=== PATIENT | female | born 1970 | race Caucasian/White ===

== ENCOUNTER 2016-10-30 14:31 | Outpatient (CLI) ==
[2016-07-15 22:08] VITALS: BMI 38.9
[2016-10-30 17:26] LABS: BASOPHILS # (AUTO) 0.1 K/uL (0-0.2); BASOPHILS % (AUTO) 0.7 % (0.0-3.0); EOSINOPHILS # (AUTO) 0.2 K/ul (0.0-0.7); EOSINOPHILS % (AUTO) 2.1 % (0.0-7.0); HEMATOCRIT 41.7 % (37.0-47.0); HEMOGLOBIN 13.8 g/dl (12.0-16.0); IMMATURE GRANULOCYTE % (AUTO) 0.5 % (0.0-5.0); LYMPHOCYTES # (AUTO) 3.1 K/uL (0.60-3.4); LYMPHOCYTES % (AUTO) 32.2 (10.0-50.0); MEAN CORPUSCULAR HEMOGLOBIN 30.4 pg (27.0-31.0); MEAN CORPUSCULAR HGB CONC 33.1 (31.8-35.4); MEAN CORPUSCULAR VOLUME 91.9 fl (81.0-99.0); MONOCYTES # (AUTO) 0.6 K/uL (0.4-2.0); MONOCYTES % (AUTO) 6.3 (0-10); NEUTROPHILS # (AUTO) 5.6 K/ul (2.0-6.9); NEUTROPHILS % (AUTO) 58.2; PLATELET COUNT 291 10^3/uL (140-440); RED BLOOD COUNT 4.54 10^6/ul (4.20-5.40); WHITE BLOOD COUNT 9.59 K/ul (4.6-10.2)
[2016-10-30 17:40] LABS: ALBUMIN 3.7 g/dL (3.4-5.0); ALBUMIN/GLOBULIN RATIO 1.23; ANION GAP 13.5; BILIRUBIN,TOTAL 0.15 mg/dL (0.00-1.20); BUN/CREATININE RATIO 14.6; CALCIUM 8.8 mg/dL (8.2-10.2); CHOL/HDL RATIO 2.8 (4.5-5.5); CREATININE 0.89 mg/dL (0.60-1.30); POTASSIUM 3.5 mmol/L (3.5-5.10); TOTAL PROTEIN 6.7 g/dL (6.4-8.2)
== END 2016-10-30 14:32 | disposition home or self-care (01) ==
LOC: LAB 14:31
PROVIDERS: ATTEND Nurse Practitioner Family
DX: E78.1 Pure hyperglyceridemia (principal)
CPT/HCPCS: 36415; 80053; 80061; 85025

== ENCOUNTER 2016-11-16 11:37 | Outpatient (CLI) ==
[2016-07-15 22:08] VITALS: BMI 38.9
[2016-11-16 13:57] LABS: FLU INTERNAL QC INTERNAL QC VALID; RAPID FLU A NEGATIVE (NEGATIVE); RAPID FLU B NEGATIVE (NEGATIVE)
== END 2016-11-16 11:38 | disposition home or self-care (01) ==
LOC: LAB 11:37
PROVIDERS: ATTEND Nurse Practitioner Family
DX: J02.9 Acute pharyngitis, unspecified (principal)
CPT/HCPCS: 87651; 87804; 87880

== ENCOUNTER 2016-12-07 20:07 | Emergency (ER) ==
[2016-12-07 20:14] VITALS: BP 135/85; TEMP 99.1; BMI 38.0
--- NOTE | 2016-12-07 20:20 | ED.PDOC ---
General ED Provider: Dr. SHAYNE LOPEZ-ER Chief Complaint: Cough Stated Complaint: my sinuses are draining and i am coughing Time Seen by Physician: 20:18 Mode of Arrival: Walk-In Information Source: Patient Exam Limitations: No limitations Primary Care [facility] Nursing and Triage Documentation Reviewed and Agree: Yes Respiratory Complaint Exam - Respiratory Complaint/Exam Onset/Duration: 3 dasy Symptoms Are: Still present Timing: Intermittent Initial Severity: Mild Current Severity: Mild Location: Nose, Chest Character: Reports: Non-productive cough Aggravating: Reports: URI Alleviating: Reports: Bronchodilators Associated Signs and Symptoms: Reports: Wheezing, URI, Nasal congestion, Sinus discomfort, Sore throat. Denies: Rapid breathing, Dyspnea, Fever, Chills, Chest pain, Pleuritic chest pain, Hemoptysis, Dizziness, Calf pain, Calf swelling, Edema, Hoarseness, Vomiting, Weight loss, Decreased oral intake, Increased thirst, Increased appetite, Increased urination History of Healthcare-Acquired Pneumonia: No Related Surgical History: Reports: None Pulmonary Embolism Risk Factors: None Cardiac Risk Factors: Reports: Smoking Pseudomonas Risk Factors: Reports: Chronic Lung Disease Status Asthmaticus Risk Factors: Reports: None Home Oxygen Use: No Recent Stress Test: No Recent Echo/LV Function: No Current Antibiotic Use: No Current Asthma Medication Use: No Respiratory Distress: None Inadequate Respiratory Effort: No Dysphagia Present: No Stridor Present: No JVD Present: No Accessory Muscle Use: No Diminished Breath Sounds: No Sinus Tenderness: Maxillary Grunting Respirations: No Kussmaul Respirations: No Differential Diagnoses: Bronchitis, Sinusitis, URI Review of Systems - Review Of Systems Constitutional: Reports: No symptoms Eyes: Reports: No symptoms Ears, Nose, Mouth, Throat: Reports: Nose discharge Respiratory: Reports: Cough, Wheezing Cardiac: Reports: No symptoms GI: Reports: No symptoms : Reports: No symptoms Musculoskeletal: Reports: No symptoms Skin: Reports: No symptoms Neurological: Reports: No symptoms Endocrine: Reports: No symptoms Hematologic/Lymphatic: Reports: No symptoms All Other Systems: Reviewed and Negative Past Medical History - Past Medical History Previously Healthy: Yes Endocrine: Reports: None Cardiovascular: Reports: None Respiratory: Reports: None Hematological: Reports: None Gastrointestinal: Reports: None Genitourinary: Reports: None Neuro/Psych: Reports: None Musculoskeletal: Reports: None Cancer: Reports: None Last Menstrual Period: 12/07/16 - Surgical History General Surgical History: Reports: None - Family History Family History: Reports: None - Social History Smoking Status: Current every day smoker, Heavy tobacco smoker Hx Substance Use: Yes (17 YEARS AGO METH CLEAN NOW) Alcohol Screening: Occasionally - Immunizations Tetanus Shot up to Date: No Physical Exam - Physical Exam Appearance: Well-appearing, No pain distress, Well-nourished Eyes: MODESTO, EOMI, Conjunctiva clear ENT: Ears normal, Nose normal, Oropharynx normal Neck: Supple Respiratory: Wheezes Cardiovascular: RRR, Pulses normal, No rub, No murmur GI/: Soft, Nontender, No masses, Bowel sounds normal, No Organomegaly Musculoskeletal: Normal strength, ROM intact, No edema, No calf tenderness Skin: Warm Neurological: Sensation intact, Motor intact, Reflexes intact, Cranial nerves intact, Alert, Oriented Psychiatric: Affect appropriate, Mood appropriate Critical Care Note - Critical Care Note Total Time (mins): 0 Course - Course Vital Signs: Temp Pulse Resp BP Pulse Ox 12/07/16 20:10 99.1 F 94 H 22 135/85 97 Departure - Departure Time of Disposition: 20:20 Disposition: HOME SELF-CARE Discharge Problem: COPD exacerbation Sinusitis Qualifiers: Sinusitis location: unspecified location Chronicity: acute Recurrence: non- recurrent Qualifier Code: (J01.90) Acute sinusitis, unspecified Instructions: COPD (Chronic Obstructive Pulmonary Disease) (ED) Condition: Good Pt referred to PMD for follow-up: Yes Additional Instructions: biaxin 500mg bid x 10 days--prednisone 30mg x2 days then 20mg x2 days then 10mg x 2 days albuterol inhaler 2 puffs qid --tessalon perles 200mg tid prn cough 30- -stop smoking--recfheck in 72hrs if not better --consider cxr if not improving Allergies/Adverse Reactions: Allergies egg Allergy (Severe, Unverified 12/07/16 20:15) stomach ache, rash miconazole nitrate [From Monistat 3] Allergy (Severe, Unverified 12/07/16 20:15) Swelling skin cleanser comb no.17 [From Monistat 3] Allergy (Severe, Unverified 12/07/16 20:15) Swelling aspirin Adverse Reaction (Verified 12/07/16 20:15) SEVERE VOMITING/TROUBLE BREATHING cephalexin monohydrate [From Keflex] Adverse Reaction (Verified 12/07/16 20:15) cinnamon [Cinnamon] Adverse Reaction (Verified 12/07/16 20:15) codeine Adverse Reaction (Verified 12/07/16 20:15) Iodinated Contrast Media - Oral and [Iodinated Contrast Media - IV Dye] Adverse Reaction (Verified 12/07/16 20:15) latex Adverse Reaction (Verified 12/07/16 20:15) meperidine HCl [From Demerol] Adverse Reaction (Verified 12/07/16 20:15) morphine Adverse Reaction (Verified 12/07/16 20:15) QUIT BREATHING Penicillins Adverse Reaction (Verified 12/07/16 20:15) shellfish derived Adverse Reaction (Verified 12/07/16 20:15) Sulfa (Sulfonamide Antibiotics) Adverse Reaction (Verified 12/07/16 20:15) buttermilk ranch dressing Adverse Reaction (Uncoded 12/07/16 20:15) Home Medications: Ambulatory Orders Furosemide [Lasix Tab] 40 mg PO DAILY 09/12/13 Gabapentin 100 mg PO DIRECTED 07/09/15 Metoprolol Succinate 25 mg PO DAILY 07/09/15 Budesonide/Formoterol Fumarate [Symbicort 80-4.5 Mcg Inhaler] 2 puff IH BID 12/27 Nortriptyline HCl 50 mg PO BEDTIME 10/31/15 Topiramate [Topamax] 100 mg PO DAILY 10/31/15 Topiramate [Topamax] 200 mg PO BEDTIME 10/31/15 Albuterol Sulfate 0.083% Neb [Albuterol 0.083% Neb] 1 vial NEB Q4-6H PRN Azithromycin [Zithromax] 250 mg PO DIRECTED #6 tablet 07/15/16 Benzonatate [Tessalon Perles] 100 mg PO TID PRN #25 capsule 07/15/16 Methylprednisolone [Medrol Dosepak] 4 mg PO DIRECTED #1 pkg 07/15/16 Acetaminophen/Chlorpheniramine [Coricidin Hbp Cold & Flu Tab] 1 each PO PRN 10/30 Escitalopram Oxalate [Lexapro] 20 mg PO DAILY 10/15/16 Lorazepam [Ativan] 0.5 mg PO PRN 10/15/16 Disposition Discussed With: Patient
== END 2016-12-07 20:30 | disposition home or self-care (01) ==
LOC: ED 20:07
DX: J44.1 Chronic obstructive pulmonary disease with (acute) exacerbation (principal); J01.90 Acute sinusitis, unspecified; F17.210 Nicotine dependence, cigarettes, uncomplicated; Z79.899 Other long term (current) drug therapy
CPT/HCPCS: 99282

== ENCOUNTER 2017-01-06 13:37 | Outpatient (CLI) ==
--- NOTE | 2017-01-06 14:36 | CT ---
EXAM: CT of the head without contrast History: Primary hypertension. Comparison: Head CT 09/12/2013 Technique: Multiplanar CT images through the head were obtained without the administration of IV co ntrast Findings: The visualized paranasal sinuses are clear in general. Small right mastoid effusion. No acute calvarial abnormalities. Intracranially the ventricular and cisternal spaces are normal in size, shape and configuration for a patient of this age. No dominant mass or midline shift. No hydrocephalous. No acute intracrania l hemorrhage or abnormal extraaxial fluid collections. Impression: No acute intracranial process. Small right mastoid effusion.
== END 2017-01-06 13:38 | disposition home or self-care (01) ==
LOC: RAD 13:37
PROVIDERS: ATTEND Nurse Practitioner Family
DX: I10 Essential (primary) hypertension (principal); G44.89 Other headache syndrome

== ENCOUNTER 2017-01-08 01:36 | Emergency (ER) ==
[2017-01-08 01:47] VITALS: BP 133/86; TEMP 97.2; BMI 42.0
--- NOTE | 2017-01-08 02:23 | ED.PDOC ---
General ED Provider: Dr. BALDEMAR NICOLE Chief Complaint: Headache Stated Complaint: Patient is a 46 year old male who comes to the ER with headaches for one week. Has had elevated blood pressure which is better today. Has Apt with entry driver operator next week however headaches got worse tonigth. Has photophobia but no nausea. Time Seen by Physician: 02:20 Mode of Arrival: Walk-In Information Source: Patient Exam Limitations: No limitations Primary Care Provider: HARIS FLORES Seen Within Last 72 Hours for Same Complaint By: Clinic Nursing and Triage Documentation Reviewed and Agree: Yes Neurological Complaint Exam - Headache Complaint/Exam Onset: Gradual Duration: constant Symptoms Are: Still present Timing: Constant Worst Headache Ever: No Initial Severity: Severe Current Severity: Severe Location: Left, Frontal, Temporal Character: Reports: Throbbing, Radiating, Typical headache Aggravating: Reports: Bright lights Alleviating: Reports: None Associated Signs and Symptoms: Denies: Nausea, Vomiting, Sinus pressure, Fever, Neck pain, Neck stiffness, Decreased LOC, Visual changes Related History: Reports: Similar episode Related Surgical History: Reports: None SAH Risk Factors: Reports: None Meningitis Risk Factors: Reports: None SDH Risk Factors: Reports: None Temporal Arteritis Risk Factors: Reports: Female, . Denies: Over 60 years old, Polymyalgia Rheumatica Normal Head CT Within Last 12 Months: Yes (done yesterday ) Fundoscopic Exam: Present: Normal Findings Papilledema Present: No Temporal Artery Tenderness: Present: None Sinus Tenderness: Present: None TMJ Tenderness: Present: None Glascow Coma Scale (see protocol): 15 Meningeal Signs Positive: No ROM Limited In: No Limitiations Focal Weakness: Present: None Focal Sensory Loss: Present: None Gait: Normal Nystagmus Present: No Gag Reflex Present: Yes [id number]: Normal Findings Romberg Test Positive: No Babinski Sign: Negative Right, Negative Left Heel to Toe Normal: No Head Picture: 1 - headache with photophobia Differential Diagnoses: Migraine, Tension Headache, Viral Syndrome Review of Systems - Review Of Systems Constitutional: Reports: No symptoms Eyes: Reports: Photophobia Ears, Nose, Mouth, Throat: Reports: No symptoms Respiratory: Reports: No symptoms Cardiac: Reports: No symptoms GI: Reports: No symptoms : Reports: No symptoms Musculoskeletal: Reports: No symptoms Skin: Reports: No symptoms Neurological: Reports: Anxiety, Headache Endocrine: Reports: No symptoms Hematologic/Lymphatic: Reports: No symptoms All Other Systems: Reviewed and Negative Past Medical History - Past Medical History Previously Healthy: Yes Endocrine: Reports: Hyperthyroid, Dyslipidemia Cardiovascular: Reports: CHF (Post CHF ) Respiratory: Reports: COPD, Asthma Hematological: Reports: None Gastrointestinal: Reports: GERD Genitourinary: Reports: None Neuro/Psych: Reports: Migraine, Seizure, Anxiety, Depression Musculoskeletal: Reports: None Cancer: Reports: None Last Menstrual Period: YESTERDAY - Surgical History General Surgical History: Reports: (x2), Appendectomy, Cholecystectomy , Tonsillectomy, Orthopedic (RT ARM WITH PLATES AND SCREWS) - Family History Family History: Reports: None - Social History Smoking Status: Current every day smoker, Light tobacco smoker Hx Substance Use: Yes (17 YEARS AGO METH CLEAN NOW) Alcohol Screening: Occasionally - Immunizations Tetanus Shot up to Date: Yes Physical Exam - Physical Exam Appearance: Ill-appearing, Obese Pain Distress: Severe Respiratory: Airway patent, Breath sounds clear, Breath sounds equal, Respirations nonlabored Cardiovascular: RRR, Pulses normal, No rub, No murmur GI/: Soft, Nontender, No masses, Bowel sounds normal, No Organomegaly Musculoskeletal: Normal strength, ROM intact, No edema, No calf tenderness Skin: Warm, Dry, Normal color Neurological: Sensation intact, Motor intact, Reflexes intact, Cranial nerves intact, Alert, Oriented Psychiatric: Anxious Interpretation - Radiology Interpretation Radiology Interpretation By: Radiologist Radiology Results: Negative Exam Interpreted: CT Scan (01/06/2017) Critical Care Note - Critical Care Note Total Time (mins): 0 Course - Course Orders, Labs, Meds: Orders Category Date Time Status Nalbuphine HCl [Nubain] MEDS 01/08/17 02:30 Discontinued 10 mg IM ONCE STA Medications Discontinued Medications Generic Name Dose Route Start Last Admin Trade Name Freq PRN Reason Stop Dose Admin Nalbuphine HCl 10 mg 01/08/17 02:30 01/08/17 02:41 Nubain IM 01/08/17 02:31 10 mg ONCE STA Administration Vital Signs: Temp Pulse Resp BP Pulse Ox 01/08/17 01:37 97.2 F L 87 20 133/86 98 Departure - Departure Time of Disposition: 02:30 Disposition: HOME SELF-CARE Discharge Problem: Headache Classic migraine Qualifiers: Status migrainosus presence: without status migrainosus Intractability: not intractable Qualifier Code: (G43.109) Migraine with aura, not intractable, without status migrainosus Instructions: Migraine Headache (ED) Condition: Stable Pt referred to PMD for follow-up: Yes Additional Instructions: Keep your apt with the entry driver operator. Follow up with the clinic in one to two days Take Fioricet as needed Prescriptions: Butalb/Acetaminophen/Caffeine [Fioricet] 1 each PO Q6H PRN #15 tablet PRN Reason: Migrane headache Allergies/Adverse Reactions: Allergies egg Allergy (Severe, Verified 01/08/17 01:48) stomach ache, rash miconazole nitrate [From Monistat 3] Allergy (Severe, Verified 01/08/17 01:48) Swelling skin cleanser comb no.17 [From Monistat 3] Allergy (Severe, Verified 01/08/17 01 :48) Swelling aspirin Adverse Reaction (Verified 01/08/17 01:48) SEVERE VOMITING/TROUBLE BREATHING cephalexin monohydrate [From Keflex] Adverse Reaction (Verified 01/08/17 01:48) cinnamon [Cinnamon] Adverse Reaction (Verified 01/08/17 01:48) codeine Adverse Reaction (Verified 01/08/17 01:48) Iodinated Contrast Media - Oral and [Iodinated Contrast Media - IV Dye] Adverse Reaction (Verified 01/08/17 01:48) latex Adverse Reaction (Verified 01/08/17 01:48) meperidine HCl [From Demerol] Adverse Reaction (Verified 01/08/17 01:48) morphine Adverse Reaction (Verified 01/08/17 01:48) QUIT BREATHING Penicillins Adverse Reaction (Verified 01/08/17 01:48) shellfish derived Adverse Reaction (Verified 01/08/17 01:48) Sulfa (Sulfonamide Antibiotics) Adverse Reaction (Verified 01/08/17 01:48) sumatriptan [From Imitrex] Adverse Reaction (Verified 01/08/17 02:29) Rash buttermilk ranch dressing Adverse Reaction (Uncoded 01/08/17 01:48) Home Medications: Ambulatory Orders Furosemide [Lasix Tab] 40 mg PO DAILY 09/12/13 Gabapentin 100 mg PO DIRECTED 07/09/15 Metoprolol Succinate 25 mg PO DAILY 07/09/15 Budesonide/Formoterol Fumarate [Symbicort 80-4.5 Mcg Inhaler] 2 puff IH BID 12/27 Topiramate [Topamax] 100 mg PO DAILY 10/31/15 Topiramate [Topamax] 200 mg PO BEDTIME 10/31/15 Albuterol Sulfate 0.083% Neb [Albuterol 0.083% Neb] 1 vial NEB Q4-6H PRN Azithromycin [Zithromax] 250 mg PO DIRECTED #6 tablet 07/15/16 Benzonatate [Tessalon Perles] 100 mg PO TID PRN #25 capsule 07/15/16 Acetaminophen/Chlorpheniramine [Coricidin Hbp Cold & Flu Tab] 1 each PO Q6H PRN 10/15/16 Escitalopram Oxalate [Lexapro] 20 mg PO DAILY 10/15/16 Lorazepam [Ativan] 0.5 mg PO DIRECTED PRN 10/15/16 Epinephrine [Epinephrine 1:10,000 Syringe] 0.1 mg IJ PRN 01/06/17 Albuterol Sulfate [Proair Hfa] 2 puff IH Q4H PRN 01/08/17 Butalb/Acetaminophen/Caffeine [Fioricet] 1 each PO Q6H PRN #15 tablet 01/08/17 Disposition Discussed With: Patient, Family
[2017-01-08] MEDS ORDERED: NUBAIN IM STA (02:30)
== END 2017-01-08 03:23 | disposition home or self-care (01) ==
LOC: ED 01:36
DX: G43.109 Migraine with aura, not intractable, without status migrainosus (principal); F17.210 Nicotine dependence, cigarettes, uncomplicated
CPT/HCPCS: 96372; 99283

== ENCOUNTER 2017-08-09 16:31 | Outpatient (CLI) | END 2017-08-09 16:32 | disposition home or self-care (01) | LOC: LAB 16:31 | PROVIDERS: ATTEND Nurse Practitioner Family | DX: J02.9 Acute pharyngitis, unspecified (principal) | CPT/HCPCS: 87651; 87880 ==

== ENCOUNTER 2017-08-18 08:20 | Outpatient (CLI) ==
--- NOTE | 2017-08-18 10:18 | MAMMO ---
EXAM: Bilateral digital screening mammogram (2-D and 3-D) History: Screening Comparison: Bilateral mammogram 06/19/2016 Findings: MLO and CC views of bilateral breasts demonstrate scattered fibroglandular breast parenchy ma. CAD was reviewed by the radiologist. Tomosynthesis was performed. There are no dominant masses , no suspicious microcalcifications and no architectural distortions. Impression: Stable negative mammogram. Recommend followup routine screening mammography in 1 year. BIRADS 1
== END 2017-08-18 08:21 | disposition home or self-care (01) ==
LOC: RAD 08:20
PROVIDERS: ATTEND Nurse Practitioner Family
DX: Z12.31 Encounter for screening mammogram for malignant neoplasm of breast (principal)
CPT/HCPCS: 77067

== ENCOUNTER 2017-10-20 16:40 | Emergency (ER) ==
[2017-10-20 16:48] VITALS: BP 109/72; TEMP 99.4; BMI 30.9
[2017-10-20] MEDS ORDERED: LIDOCAINE HCL 1% SDV SUBCUT STA (17:46)
[2017-10-20] MEDS ORDERED: ROCEPHIN IM STA (17:46)
--- NOTE | 2017-10-20 18:15 | ED.PDOC ---
General ED Provider: Dr. JASMYN ERNANDEZ Chief Complaint: Nausea/Vomiting Stated Complaint: flu like symptoms Time Seen by Physician: 17:00 (n, v, flu like symptoms sen with nelida) Mode of Arrival: Walk-In Information Source: Patient Exam Limitations: No limitations Primary [facility] Provider: [facility] Nursing and Triage Documentation Reviewed and Agree: Yes Reviewed sepsis parameters & appropriate labs ordered?: Yes System Inflammatory Response Syndrome: Not Applicable Sepsis Protocol: For patient's 13 years and over: Temp is 96.8 and below OR 101 and greater Pulse >90 BPM Resp >20/minute Acutely Altered Mental Status Are patient's symptoms suggestive of a new infection, such as: -Pneumonia -Skin, Soft Tissue -Endocarditis -UTI -Bone, Joint Infection -Implantable Device -Acute Abdominal Infection -Wound Infection -Meningitis -Blood Stream Catheter Infection -Unknown System Inflammatory Response Syndrome: Not Applicable Respiratory Complaint Exam - Respiratory Complaint/Exam Onset/Duration: flu like symptoms started 1 day Symptoms Are: Resolved Timing: Intermittent Initial Severity: Moderate Current Severity: Mild Location: Nose, Throat, Chest Character: Reports: Non-productive cough, Dry cough Aggravating: Reports: URI Associated Signs and Symptoms: Reports: URI, Nasal congestion, Vomiting (x6/ 24 hr ) History of Healthcare-Acquired Pneumonia: No Related Surgical History: Reports: None Pulmonary Embolism Risk Factors: None Cardiac Risk Factors: Reports: None Pseudomonas Risk Factors: Reports: None Tuberculosis Risk Factors: Reports: None Status Asthmaticus Risk Factors: Reports: None Home Oxygen Use: No Recent Stress Test: No Recent Echo/LV Function: No Current Antibiotic Use: No Current Asthma Medication Use: No Respiratory Distress: None Inadequate Respiratory Effort: No Dysphagia Present: No Stridor Present: No JVD Present: No Accessory Muscle Use: No Retractions: Not Present Diminished Breath Sounds: No Sinus Tenderness: None Review of Systems - Review Of Systems Constitutional: Reports: No symptoms Eyes: Reports: No symptoms Ears, Nose, Mouth, Throat: Reports: No symptoms Respiratory: Reports: No symptoms Cardiac: Reports: No symptoms GI: Reports: Nausea, Vomiting : Reports: No symptoms Musculoskeletal: Reports: No symptoms Skin: Reports: No symptoms Neurological: Reports: No symptoms Endocrine: Reports: No symptoms Hematologic/Lymphatic: Reports: No symptoms All Other Systems: Reviewed and Negative Past Medical History - Past Medical History Previously Healthy: Yes Endocrine: Reports: Hyperthyroid, Dyslipidemia Cardiovascular: Reports: CHF (Post CHF ) Respiratory: Reports: COPD, Asthma Hematological: Reports: None Gastrointestinal: Reports: GERD Genitourinary: Reports: None Neuro/Psych: Reports: Migraine, Seizure, Anxiety, Depression Musculoskeletal: Reports: None Cancer: Reports: None Last Menstrual Period: 2 months ago--perimenopausal - Surgical History General Surgical History: Reports: (x2), Appendectomy, Cholecystectomy , Tonsillectomy, Orthopedic (RT ARM WITH PLATES AND SCREWS) - Family History Family History: Reports: None - Social History Smoking Status: Current every day smoker, Light tobacco smoker Hx Substance Use: Yes (17 YEARS AGO METH CLEAN NOW) Alcohol Screening: Occasionally Physical Exam - Physical Exam Appearance: Well-appearing, No pain distress, Well-nourished Eyes: MODESTO, EOMI, Conjunctiva clear ENT: Ears normal, Nose normal, Oropharynx normal Respiratory: Airway patent, Breath sounds clear, Breath sounds equal, Respirations nonlabored Cardiovascular: RRR, Pulses normal, No rub, No murmur GI/: Soft, Nontender, No masses, Bowel sounds normal, No Organomegaly Musculoskeletal: Normal strength, ROM intact, No edema, No calf tenderness Skin: Warm, Dry, Normal color Neurological: Sensation intact, Motor intact, Reflexes intact, Cranial nerves intact, Alert, Oriented Psychiatric: Affect appropriate, Mood appropriate Critical Care Note - Critical Care Note Total Time (mins): 0 Course - Course Orders, Labs, Meds: Lab Review 10/20/17 10/20/17 17:00 17:00 Urine Color Yellow Urine Clarity Cloudy Urine pH 5.5 Ur Specific [place] 1.025 Urine Protein 2+ Urine Glucose (UA) Negative Urine Ketones 1+ Urine Blood 2+ Urine Nitrite Negative Urine Bilirubin 1+ Urine Urobilinogen 0.2 Ur Leukocyte Esterase 3+ Urine Microscopic RBC 5-10 Urine Microscopic WBC Tntc Ur Squamous Epith Cells Not present Amorphous Sediment 2+ Urine Bacteria 1+ Influenza A (Rapid) Negative by naat Influenza B (Rapid) Positive by naat H Orders Category Date Time Status FLU A & B MOLECULAR [FLU A/B MOLECULAR] Stat LAB 10/20/17 17:00 Completed MOLECULAR GROUP A STREP Stat LAB 10/20/17 17:00 Completed URINALYSIS C & S IF INDICATED Stat LAB 10/20/17 17:00 Completed URINE CULTURE Stat LAB 10/20/17 17:00 Completed Ceftriaxone Sodium [Rocephin] MEDS 10/20/17 17:46 Discontinued 1 gm IM ONCE STA Lidocaine HCl/Pf [Lidocaine HCl 1% Sdv] MEDS 10/20/17 17:46 Discontinued 5 ml SUBCUT ONCE STA CT ABD/PEL WO RENAL STONE PROT Stat RADS 10/20/17 17:46 Completed Medications Discontinued Medications Generic Name Dose Route Start Last Admin Trade Name Remedios PRN Reason Stop Dose Admin Ceftriaxone Sodium 1 gm 10/20/17 17:46 10/20/17 18:09 Rocephin IM 10/20/17 17:47 1 gm ONCE STA Administration Lidocaine HCl 5 ml 10/20/17 17:46 10/20/17 18:09 Lidocaine Hcl 1% Sdv SUBCUT 10/20/17 17:47 5 ml ONCE STA Administration Vital Signs: Temp Pulse Resp BP Pulse Ox 10/20/17 16:43 99.4 F 90 20 109/72 96 Departure - Departure Time of Disposition: 19:00 Disposition: HOME SELF-CARE Discharge Problem: Nausea, Vomiting Instructions: Urinary Tract Infection in Women (ED), Influenza (ED), Pneumonia (ED) Condition: Stable Pt referred to PMD for follow-up: Yes IPMP verified?: No Additional Instructions: continue meds as directed--call family md as soon as possible for follow up-- plenty of fluids Allergies/Adverse Reactions: Allergies egg Allergy (Severe, Verified 10/20/17 16:50) stomach ache, rash miconazole nitrate [From Monistat 3] Allergy (Severe, Verified 10/20/17 16:50) Swelling skin cleanser comb no.17 [From Monistat 3] Allergy (Severe, Verified 10/20/17 16 :50) Swelling aspirin Adverse Reaction (Verified 10/20/17 16:50) SEVERE VOMITING/TROUBLE BREATHING cephalexin monohydrate [From Keflex] Adverse Reaction (Verified 10/20/17 16:50) cinnamon [Cinnamon] Adverse Reaction (Verified 10/20/17 16:50) codeine Adverse Reaction (Verified 10/20/17 16:50) Iodinated Contrast- Oral and IV Dye [Iodinated Contrast Media - IV Dye] Adverse Reaction (Verified 10/20/17 16:50) latex Adverse Reaction (Verified 10/20/17 16:50) meperidine HCl [From Demerol] Adverse Reaction (Verified 10/20/17 16:50) morphine Adverse Reaction (Verified 10/20/17 16:50) QUIT BREATHING Penicillins Adverse Reaction (Verified 10/20/17 16:50) shellfish derived Adverse Reaction (Verified 10/20/17 16:50) Sulfa (Sulfonamide Antibiotics) Adverse Reaction (Verified 10/20/17 16:50) sumatriptan [From Imitrex] Adverse Reaction (Verified 10/20/17 16:50) Rash chemicals from bleaching flour and sugar Allergy (Severe, Uncoded 08/03/17 16:32 ) causes stomach trouble and breathing Patient to notify drugstore buttermilk ranch dressing Adverse Reaction (Uncoded 01/08/17 01:48) Home Medications: Ambulatory Orders Furosemide [Lasix Tab] 40 mg PO DAILY 09/12/13 Gabapentin 100 mg PO DIRECTED 07/09/15 Topiramate [Topamax] 100 mg PO DAILY 10/31/15 Topiramate [Topamax] 200 mg PO BEDTIME 10/31/15 Albuterol Sulfate 0.083% Neb [Albuterol 0.083% Neb] 1 vial NEB Q4-6H PRN Benzonatate [Tessalon Perles] 100 mg PO TID PRN #25 capsule 07/15/16 Lorazepam [Ativan] 0.5 mg PO DIRECTED PRN 10/15/16 Albuterol Sulfate [Proair Hfa] 2 puff IH Q4H PRN 01/08/17 Atorvastatin Calcium 20 mg PO BEDTIME 06/07/17 Duloxetine HCl 60 mg PO d 08/03/17 Ranitidine HCl [Zantac] 150 mg PO BID 08/03/17
--- NOTE | 2017-10-20 18:28 | CT ---
EXAM: CT abdomen pelvis without intravenous contrast 10/20/2017. Sagittal and coronal reformatted i mages obtained HISTORY: Flank pain COMPARISON: None. FINDINGS: Innumerable small nodules within both lung bases. This may represent nodular interstitial pneumonia. The liver shows no acute abnormality. The gallbladder has been removed. The adrenal glands and kidneys show no acute abnormality. There is no hydronephrosis. The spleen and pancreas show no acute process. There is no evidence of bowel obstruction. Fluid filled appearance of small bowel. Air-fluid levels extend throughout the colon. This may represent enteritis/diarrhea. Trace free fluid within the dependent aspect of the pelvis. The appendix is not visualized. There are no secondary signs of appendicitis. No acute osseous abnormality. IMPRESSION: 1. Innumerable small nodules within the right and left lung base suggestive of nodular interstitial pneumonia. Other etiologies less likely. 2. Status post cholecystectomy. 3. No urinary or bowel obstruction 4. Fluid-filled small bowel. Air-fluid levels throughout the colon. The appearance suggests enteri tis/diarrhea.
== END 2017-10-20 18:49 | disposition home or self-care (01) ==
LOC: ED 16:40
DX: J10.1 Influenza due to other identified influenza virus with other respiratory manifestations (principal); N39.0 Urinary tract infection, site not specified; J18.9 Pneumonia, unspecified organism; R11.2 Nausea with vomiting, unspecified; F17.210 Nicotine dependence, cigarettes, uncomplicated; Z79.899 Other long term (current) drug therapy
CPT/HCPCS: 74176; 81001; 87086; 87186; 87502; 87651; 96372; 99283

== ENCOUNTER 2017-10-24 17:15 | Outpatient (CLI) | END 2017-10-24 17:16 | disposition home or self-care (01) | LOC: LAB 17:15 | PROVIDERS: ATTEND Internal Medicine | DX: R31.9 Hematuria, unspecified (principal) | CPT/HCPCS: 81001 ==

== ENCOUNTER 2018-10-10 12:19 | Outpatient (CLI) | END 2018-10-10 12:20 | disposition home or self-care (01) | LOC: CAR 12:19 | PROVIDERS: ATTEND Physician Assistant | DX: R05 Cough (principal) ==